=== PATIENT | male | born 1940 | race Caucasian/White ===

== ENCOUNTER 2018-01-30 10:49 | Emergency (ER) | payer OTHER ==
[~2018-01-30] VITALS: Ht 185.4 cm; Wt 81.6 kg
[2018-01-30 10:55] VITALS: BP 134/69
[2018-01-30 11:37] LABS: Basophils # (auto) 0.1 uL; Monocytes # (auto) 0.5 uL; Monocytes % (auto) 9.7 % (0.0-12.0); Red Cell Distribution Width 14.3 % (11.8-14.3)
[2018-01-30 11:39] LABS: Basophils % (auto) 1.1 % (0.0-2.0); Eosinophils # (auto) 0.1 uL; Eosinophils % (auto) 2.6 % (0.0-7.0); Lymphocytes # (auto) 1.6 uL; Lymphocytes % (auto) 28.1 % (10.0-50.0); Mean Corpuscular Hemoglobin 37.4 pg (28.0-32.0); Mean Corpuscular Hgb Conc. 34.1 g/dL (32.0-36.0); Mean Corpuscular Volume 109.5 fL (80.0-100.0); Neutrophils # (auto) 3.3 uL; Neutrophils % (auto) 58.5 % (37.0-80.0); Nucleated Red Blood Cells % 1.1 %; Platelet Count (auto) 137 10^3/uL (140-450); Red Blood Cells 3.74 10^6/uL (4.5-5.90); White Blood Cell 5.6 10^3/uL (4.4-10.8)
[2018-01-30 12:00] LABS: Alanine Aminotransferase 52 U/L (16-61); Albumin 3.4 g/dL (3.4-5.0); Alkaline Phosphatase 87 U/L (45-117); Anion Gap 11 (5-15); Aspartate Aminotransferase 103 U/L (15-37); BUN/Creatinine Ratio 10.8; Bilirubin, Total 1.1 mg/dL (0.2-1.0); Blood Urea Nitrogen 10 mg/dL (7-18); Calcium 8.7 mg/dL (8.5-10.1); Carbon Dioxide 23 mmol/L (21-32); Chloride 108 mmol/L (98-107); GFR African American 101 mL/min; GFR Non-African American 84 mL/min; Glucose 108 mg/dL (74-106); Magnesium 1.6 mg/dL (1.6-2.6); Potassium 3.5 mmol/L (3.5-5.1); Sodium 142 mmol/L (136-145); Total Protein 6.8 g/dL (6.4-8.2)
[2018-01-30 13:28] LABS: Urine WBC None Seen /hpf (0 - 3)
[2018-01-30 14:01] LABS: Urine Bacteria NONE SEEN /hpf (None Seen); Urine Blood Negative /uL (Negative); Urine Mucus FEW (None Seen); Urine Specific Gravity 1.016 (1.001-1.035)
== END 2018-01-30 13:20 | disposition left against medical advice (07) ==
LOC: ER 10:49 → EDBD 10:49 → ER 13:20
DX: R53.1 Weakness (principal); R42 Dizziness and giddiness; Z53.21 Procedure and treatment not carried out due to patient leaving prior to being seen by health care provider
CPT/HCPCS: 36415; 70450; 71046; 80053; 81001; 83735; 84484; 85025; 93005

== ENCOUNTER 2021-09-14 06:51 | Inpatient (IN) | payer OTHER ==
[~2021-09-14] VITALS: Ht 188 cm; Wt 112.2 kg
[2021-09-14] MEDS ORDERED: SODIUM CHLORIDE 0.9% 1,000 ML IV ONE (07:30)
[2021-09-14] MEDS ORDERED: SODIUM CHLORIDE 0.9% 500 ML IVB ONE (07:30)
[2021-09-14] MEDS ORDERED: LORazepam 2MG/ML-1ML VIAL IV ONE ×2 (08:15→11:45)
[2021-09-14 08:17] LABS: Eosinophils # (auto) 0 10 ^3/uL (0-0.8); Mean Corpuscular Hgb Conc. 34.6 g/dL (32.0-36.0); Neutrophils # (auto) 6.4 10 ^3/uL (1.6-8.6); Nucleated Red Blood Cells % 0.3 %; White Blood Cell 8.3 10^3/uL (4.4-10.8)
[2021-09-14 08:18] LABS: Basophils # (auto) 0.2 10 ^3/uL (0-0.2); Basophils % (auto) 1.8 % (0.0-2.0); Eosinophils % (auto) 0.4 % (0.0-7.0); Hematocrit 42.9 % (41.0-53.0); Hemoglobin 14.8 g/dL (13.5-17.5); Lymphocytes % (auto) 11.6 % (10.0-50.0); Mean Corpuscular Hemoglobin 36.6 pg (28.0-32.0); Mean Corpuscular Volume 105.9 fL (80.0-100.0); Monocytes # (auto) 0.7 10 ^3/uL (0-1.3); Monocytes % (auto) 8.2 % (0.0-12.0); Red Blood Cells 4.05 10^6/uL (4.5-5.90)
[2021-09-14 08:21] LABS: Albumin 3.7 g/dL (3.4-5.0); Calcium 9.6 mg/dL (8.5-10.1); Potassium 3.6 mmol/L (3.5-5.1)
[2021-09-14 08:28] LABS: BUN/Creatinine Ratio 14.3; Total Protein 7.5 g/dL (6.4-8.2)
[2021-09-14 11:24] LABS: Urine Bacteria NONE SEEN /hpf (None Seen); Urine Blood 3+ /uL (Negative); Urine Mucus FEW (None Seen); Urine Specific Gravity 1.032 (1.001-1.035); Urine WBC 5 /hpf (0 - 3)
[2021-09-14] MEDS: MAGNESIUM SULFATE 1GM/100ML 100 ML IV SCH ×3 (11:34→15:12)
[2021-09-14 11:37] LABS: Amphetamine Screen, Urine NEGATIVE (NEGATIVE); Barbiturate Scree,Urine NEGATIVE (NEGATIVE); Benzodiazephine Screen, Urine NEGATIVE (NEGATIVE); Cannabinoid Screen, Urine NEGATIVE (NEGATIVE); Cocaine Screen, Urine NEGATIVE (NEGATIVE); Opiate Scree,Urine NEGATIVE (NEGATIVE); Phencyclidine Screen, Urine NEGATIVE (NEGATIVE)
[2021-09-14] MEDS ORDERED: MORPHINE SULFATE 4 MG/ML SYR/VIAL IV PRN (17:00)
[2021-09-14] MEDS ORDERED: ACETAMINOPHEN 325 MG TAB PO PRN (17:00)
[2021-09-14] MEDS ORDERED: HYDROcodone-ACET 5/325MG TAB PO PRN (17:00)
[2021-09-14] MEDS ORDERED: NITROGLYCERIN 0.4 MG SL TAB SL PRN (17:15)
[2021-09-14] MEDS ORDERED: MORPHINE SULFATE INJECTION 2 MG/ML SYRG IV PRN (17:15)
[2021-09-14] MEDS: LORazepam 2MG/ML-1ML VIAL IV PRN ×3 (17:55→22:34)
[2021-09-14] MEDS: SODIUM CHLORIDE 0.9% 1,000 ML IV SCH (17:56)
[2021-09-14] MEDS ORDERED: PHENobarbital SODIUM 130 MG/ML VL IM ONE (20:15)
[2021-09-14] MEDS ORDERED: PHENobarbital SODIUM 130 MG/ML VL IV ONE (20:30)
[2021-09-14] MEDS ORDERED: FOLIC ACID 1 MG, MULTIPLE VITAMIN 10 ML, MAGNESIUM SULF SDV 50% 8 MEQ, THIAMINE INJ 100... INJ ONE ×5 (20:45)
[2021-09-14] MEDS ORDERED: MVI in SODIUM CHLORIDE 0.9% 1,010 ML ONE (20:47)
[2021-09-14] MEDS ORDERED: FOLIC ACID 1 MG, MULTIPLE VITAMIN 10 ML, MAGNESIUM SULF SDV 50% 8 MEQ, THIAMINE INJ 100... INJ STA ×5 (21:13)
[2021-09-14] MEDS ORDERED: chlordiazePOXIDE HCL 25 MG CAP PO PRN (21:15)
[2021-09-14] MEDS ORDERED: LORazepam 2MG/ML-1ML VIAL IV PRN ×2 (21:15)
[2021-09-14] MEDS: GABAPENTIN 300 MG CAP PO SCH ×2 (22:00)
[2021-09-14] MEDS: chlordiazePOXIDE HCL 25 MG CAP PO SCH (22:55)
[2021-09-14 23:00] VITALS: BP 102/69
[2021-09-15] VITALS (20 sets, daily range): BP systolic 95–145; BP diastolic 59–111
[2021-09-15] MEDS ORDERED: METOPROLOL TARTRATE 1MG/1ML-5ML VIAL IV PRN
[2021-09-15] MEDS: LORazepam 2MG/ML-1ML VIAL IV PRN ×5 (01:08→21:28)
[2021-09-15] MEDS: ENOXAPARIN SOD 100 MG/1 ML SYRINGE SC SCH ×2 (02:46→10:27)
[2021-09-15] MEDS: SODIUM CHLORIDE 0.9% 1,000 ML IV SCH (02:46)
[2021-09-15 04:48] LABS: Basophils # (auto) 0 10 ^3/uL (0-0.2); Eosinophils # (auto) 0 10 ^3/uL (0-0.8); Hemoglobin 12.9 g/dL (13.5-17.5); Monocytes # (auto) 0.6 10 ^3/uL (0-1.3); Neutrophils # (auto) 4.3 10 ^3/uL (1.6-8.6); Nucleated Red Blood Cells % 0.5 %
[2021-09-15 04:54] LABS: Basophils % (auto) 0.8 % (0.0-2.0); Eosinophils % (auto) 0.4 % (0.0-7.0); Hematocrit 37.8 % (41.0-53.0); Lymphocytes # (auto) 0.9 10 ^3/uL (0.4-5.4); Lymphocytes % (auto) 15.2 % (10.0-50.0); Mean Corpuscular Hgb Conc. 34.2 g/dL (32.0-36.0); Mean Corpuscular Volume 108.3 fL (80.0-100.0); Monocytes % (auto) 10.2 % (0.0-12.0); Neutrophils % (auto) 73.4 % (37.0-80.0); Red Blood Cells 3.49 10^6/uL (4.5-5.90); Red Cell Distribution Width 13.8 % (11.8-14.3); White Blood Cell 5.8 10^3/uL (4.4-10.8)
[2021-09-15 05:06] LABS: Albumin 3.1 g/dL (3.4-5.0); Calcium 8.9 mg/dL (8.5-10.1); Potassium 3.8 mmol/L (3.5-5.1)
[2021-09-15 05:11] LABS: BUN/Creatinine Ratio 15.3; Bilirubin, Total 2.9 mg/dL (0.2-1.0); Total Protein 6.3 g/dL (6.4-8.2)
[2021-09-15] MEDS: chlordiazePOXIDE HCL 25 MG CAP PO SCH ×3 (05:39→18:27)
[2021-09-15] MEDS: GABAPENTIN 300 MG CAP PO SCH ×4 (05:40→21:27)
[2021-09-15] MEDS ORDERED: ENOXAPARIN SOD 30 MG/0.3 ML SYRINGE SC SCH (10:00)
[2021-09-15] MEDS ORDERED: DIGOXIN (250MCG/ML) 2 ML AMPULE IV ONE (10:30)
[2021-09-15] MEDS: METOPROLOL TARTRATE 25 MG TAB PO SCH ×2 (10:30→21:27)
[2021-09-15] MEDS: AMIODARONE HCL 200 MG TAB PO SCH ×2 (11:26→21:26)
[2021-09-15 12:00] LABS: Magnesium 1.9 mg/dL (1.6-2.6)
[2021-09-15] MEDS: FOLIC ACID 1 MG, MULTIPLE VITAMIN 10 ML, MAGNESIUM SULF SDV 50% 8 MEQ, THIAMINE INJ 100... INJ SCH ×5 (13:12)
[2021-09-15 15:49] LABS: BUN/Creatinine Ratio 15.2; Potassium 3.5 mmol/L (3.5-5.1)
[2021-09-15] MEDS: SOD CHL 0.45% 1,000 ML IV SCH (17:06)
[2021-09-16] VITALS (31 sets, daily range): BP systolic 93–155; BP diastolic 47–83
[2021-09-16] MEDS: chlordiazePOXIDE HCL 25 MG CAP PO SCH ×4 (00:47→17:37)
[2021-09-16] MEDS: SOD CHL 0.45% 1,000 ML IV SCH ×3 (03:08→20:45)
[2021-09-16 04:07] LABS: BUN/Creatinine Ratio 17.9; Calcium 8.3 mg/dL (8.5-10.1); Potassium 3.3 mmol/L (3.5-5.1)
[2021-09-16] MEDS: GABAPENTIN 300 MG CAP PO SCH ×3 (06:00→21:30)
[2021-09-16] MEDS: ENOXAPARIN SOD 100 MG/1 ML SYRINGE SC SCH (09:42)
[2021-09-16] MEDS: METOPROLOL TARTRATE 25 MG TAB PO SCH ×2 (09:42→21:33)
[2021-09-16] MEDS: AMIODARONE HCL 200 MG TAB PO SCH ×2 (09:42→21:32)
[2021-09-16] MEDS ORDERED: POTASSIUM CHL 20MEQ/100ML 100 ML IV SCH (10:45)
[2021-09-16] MEDS ORDERED: POTASSIUM CHL 20 Meq TABLET PO ONE (11:15)
[2021-09-16] MEDS ORDERED: POTASSIUM EFFERVESENT TAB 25 MEQ GT ONE (11:30)
[2021-09-16] MEDS: FOLIC ACID 1 MG, MULTIPLE VITAMIN 10 ML, MAGNESIUM SULF SDV 50% 8 MEQ, THIAMINE INJ 100... INJ SCH ×5 (12:24)
[2021-09-17] VITALS (21 sets, daily range): BP systolic 99–156; BP diastolic 48–98
[2021-09-17 04:20] LABS: Basophils # (auto) 0 10 ^3/uL (0-0.2); Basophils % (auto) 0.6 % (0.0-2.0); Eosinophils # (auto) 0.1 10 ^3/uL (0-0.8); Eosinophils % (auto) 1.6 % (0.0-7.0); Hematocrit 34.3 % (41.0-53.0); Hemoglobin 11.7 g/dL (13.5-17.5); Lymphocytes # (auto) 0.9 10 ^3/uL (0.4-5.4); Lymphocytes % (auto) 17.5 % (10.0-50.0); Mean Corpuscular Hemoglobin 36.3 pg (28.0-32.0); Mean Corpuscular Volume 106.6 fL (80.0-100.0); Monocytes # (auto) 0.5 10 ^3/uL (0-1.3); Monocytes % (auto) 9.4 % (0.0-12.0); Neutrophils # (auto) 3.5 10 ^3/uL (1.6-8.6); Neutrophils % (auto) 70.9 % (37.0-80.0); Red Blood Cells 3.22 10^6/uL (4.5-5.90); Red Cell Distribution Width 13.7 % (11.8-14.3); White Blood Cell 4.9 10^3/uL (4.4-10.8)
[2021-09-17 04:33] LABS: Albumin 2.6 g/dL (3.4-5.0); BUN/Creatinine Ratio 17.1; Calcium 7.8 mg/dL (8.5-10.1); Potassium 3.4 mmol/L (3.5-5.1)
[2021-09-17 04:36] LABS: Bilirubin, Total 1.8 mg/dL (0.2-1.0); Total Protein 5.6 g/dL (6.4-8.2)
[2021-09-17] MEDS: GABAPENTIN 300 MG CAP PO SCH ×3 (06:00→21:33)
[2021-09-17] MEDS: chlordiazePOXIDE HCL 25 MG CAP PO SCH ×4 (06:00→17:35)
[2021-09-17] MEDS: SOD CHL 0.45% 1,000 ML IV SCH ×2 (06:45→14:30)
[2021-09-17] MEDS ORDERED: BUMETANIDE 2.5mg/10ml (0.25 mg/ml) INJ IV ONE (06:45)
[2021-09-17] MEDS: AMIODARONE HCL 200 MG TAB PO SCH ×2 (09:00→21:32)
[2021-09-17] MEDS: METOPROLOL TARTRATE 25 MG TAB PO SCH ×2 (09:00→21:33)
[2021-09-17] MEDS: ENOXAPARIN SOD 100 MG/1 ML SYRINGE SC SCH (09:00)
[2021-09-17] MEDS ORDERED: POTASSIUM EFFERVESENT TAB 25 MEQ GT ONE (10:00)
[2021-09-17] MEDS ORDERED: DOCUSATE SOD 100 MG CAP PO PRN (10:00)
[2021-09-17] MEDS ORDERED: LACTULOSE 20Gm/30ML SOLN PO PRN (10:00)
[2021-09-17] MEDS: FOLIC ACID 1 MG, MULTIPLE VITAMIN 10 ML, MAGNESIUM SULF SDV 50% 8 MEQ, THIAMINE INJ 100... INJ SCH ×5 (12:26)
[2021-09-18] VITALS (11 sets, daily range): BP systolic 99–155; BP diastolic 56–81
[2021-09-18] MEDS: chlordiazePOXIDE HCL 25 MG CAP PO SCH ×4 (01:14→17:35)
[2021-09-18] MEDS: SOD CHL 0.45% 1,000 ML IV SCH ×2 (01:15→10:36)
[2021-09-18] MEDS: GABAPENTIN 300 MG CAP PO SCH ×3 (06:43→22:17)
[2021-09-18] MEDS: AMIODARONE HCL 200 MG TAB PO SCH ×2 (09:47→22:15)
[2021-09-18] MEDS: ENOXAPARIN SOD 100 MG/1 ML SYRINGE SC SCH (09:47)
[2021-09-18] MEDS: METOPROLOL TARTRATE 25 MG TAB PO SCH ×2 (09:58→22:16)
[2021-09-18 11:18] LABS: Calcium 7.8 mg/dL (8.5-10.1); Potassium 3.5 mmol/L (3.5-5.1)
[2021-09-18 11:20] LABS: BUN/Creatinine Ratio 16.4; Basophils # (auto) 0 10 ^3/uL (0-0.2); Basophils % (auto) 0.4 % (0.0-2.0); Eosinophils # (auto) 0.1 10 ^3/uL (0-0.8); Eosinophils % (auto) 1.3 % (0.0-7.0); Hematocrit 32.6 % (41.0-53.0); Hemoglobin 11.4 g/dL (13.5-17.5); Lymphocytes # (auto) 0.7 10 ^3/uL (0.4-5.4); Lymphocytes % (auto) 13.3 % (10.0-50.0); Mean Corpuscular Hemoglobin 37.4 pg (28.0-32.0); Monocytes # (auto) 0.8 10 ^3/uL (0-1.3); Monocytes % (auto) 13.7 % (0.0-12.0); Neutrophils # (auto) 3.9 10 ^3/uL (1.6-8.6); Neutrophils % (auto) 71.3 % (37.0-80.0); Nucleated Red Blood Cells % 0.5 %; Red Blood Cells 3.05 10^6/uL (4.5-5.90); Red Cell Distribution Width 13.9 % (11.8-14.3); White Blood Cell 5.5 10^3/uL (4.4-10.8)
[2021-09-18 11:22] LABS: Mean Corpuscular Volume 107.1 fL (80.0-100.0)
[2021-09-18] MEDS: FOLIC ACID 1 MG, MULTIPLE VITAMIN 10 ML, MAGNESIUM SULF SDV 50% 8 MEQ, THIAMINE INJ 100... INJ SCH ×5 (11:38)
[2021-09-18] MEDS: LORazepam 2MG/ML-1ML VIAL IV PRN (14:34)
[2021-09-19] MEDS: chlordiazePOXIDE HCL 25 MG CAP PO SCH ×3 (00:40→13:12)
[2021-09-19] MEDS: LORazepam 2MG/ML-1ML VIAL IV PRN ×2 (01:12→21:39)
[2021-09-19 05:00] VITALS: BP 111/65
[2021-09-19] MEDS: GABAPENTIN 300 MG CAP PO SCH ×3 (06:30→22:00)
[2021-09-19 06:40] LABS: Basophils # (auto) 0 10 ^3/uL (0-0.2); Eosinophils # (auto) 0.1 10 ^3/uL (0-0.8); Eosinophils % (auto) 1.1 % (0.0-7.0); Hemoglobin 11.4 g/dL (13.5-17.5); Lymphocytes # (auto) 0.8 10 ^3/uL (0.4-5.4); Monocytes # (auto) 0.9 10 ^3/uL (0-1.3); Red Cell Distribution Width 13.8 % (11.8-14.3)
[2021-09-19 06:44] LABS: Basophils % (auto) 0.6 % (0.0-2.0); Hematocrit 33.3 % (41.0-53.0); Lymphocytes % (auto) 14.5 % (10.0-50.0); Mean Corpuscular Hemoglobin 36.8 pg (28.0-32.0); Mean Corpuscular Hgb Conc. 34.1 g/dL (32.0-36.0); Monocytes % (auto) 15.6 % (0.0-12.0); Neutrophils # (auto) 3.8 10 ^3/uL (1.6-8.6); Neutrophils % (auto) 68.2 % (37.0-80.0); Nucleated Red Blood Cells % 0.6 %; Red Blood Cells 3.08 10^6/uL (4.5-5.90); White Blood Cell 5.6 10^3/uL (4.4-10.8)
[2021-09-19 07:04] LABS: Potassium 3.7 mmol/L (3.5-5.1)
[2021-09-19 07:14] LABS: BUN/Creatinine Ratio 15.8; Calcium 8.1 mg/dL (8.5-10.1); Magnesium 1.9 mg/dL (1.6-2.6)
[2021-09-19 08:00] VITALS: BP 116/64
[2021-09-19 09:00] VITALS: BP 116/64
[2021-09-19] MEDS ORDERED: ENOXAPARIN SOD 100 MG/1 ML SYRINGE SC ONE (10:30)
[2021-09-19] MEDS: AMIODARONE HCL 200 MG TAB PO SCH ×2 (10:35→22:00)
[2021-09-19] MEDS: METOPROLOL TARTRATE 25 MG TAB PO SCH ×2 (10:35→22:00)
[2021-09-19 13:00] VITALS: BP 126/60
[2021-09-19] MEDS: FOLIC ACID 1 MG, MULTIPLE VITAMIN 10 ML, MAGNESIUM SULF SDV 50% 8 MEQ, THIAMINE INJ 100... INJ SCH ×5 (13:12)
[2021-09-19 17:00] VITALS: BP 139/80
[2021-09-19 22:00] VITALS: BP 132/62
[2021-09-20] MEDS: GABAPENTIN 300 MG CAP PO SCH ×3 (05:34→22:00)
[2021-09-20 08:00] VITALS: BP 138/77
[2021-09-20] MEDS: AMIODARONE HCL 200 MG TAB PO SCH ×2 (10:00→22:00)
[2021-09-20] MEDS: METOPROLOL TARTRATE 25 MG TAB PO SCH (10:00)
[2021-09-20 12:00] VITALS: BP 138/70
[2021-09-20] MEDS: FOLIC ACID 1 MG, MULTIPLE VITAMIN 10 ML, MAGNESIUM SULF SDV 50% 8 MEQ, THIAMINE INJ 100... INJ SCH ×5 (12:31)
[2021-09-20] MEDS: ENOXAPARIN SOD 100 MG/1 ML SYRINGE SC SCH (12:34)
[2021-09-20] MEDS: METOPROLOL TARTRATE 1MG/1ML-5ML VIAL IV SCH ×2 (14:04→22:00)
[2021-09-20 16:00] VITALS: BP 131/80
[2021-09-20] MEDS ORDERED: PPN PER PHARMACY 0 ML IV SCH (18:30)
[2021-09-20 20:26] LABS: Albumin 2.6 g/dL (3.4-5.0); BUN/Creatinine Ratio 20.4; Calcium 7.8 mg/dL (8.5-10.1); Magnesium 2.4 mg/dL (1.6-2.6); Potassium 3.5 mmol/L (3.5-5.1)
[2021-09-20 20:29] LABS: Bilirubin, Total 1.4 mg/dL (0.2-1.0); Phosphorus 2.1 mg/dL (2.5-4.90)
[2021-09-20 22:00] VITALS: BP 159/77
[2021-09-20] MEDS: AMINO ACID INFUSION IN D10W 1,000 ML IV NR (22:18)
[2021-09-21] MEDS: LORazepam 2MG/ML-1ML VIAL IV PRN (01:02)
[2021-09-21 05:00] VITALS: BP 144/79
[2021-09-21 05:56] LABS: Basophils # (auto) 0 10 ^3/uL (0-0.2); Eosinophils # (auto) 0.1 10 ^3/uL (0-0.8); Eosinophils % (auto) 1.4 % (0.0-7.0); Lymphocytes # (auto) 0.7 10 ^3/uL (0.4-5.4); Monocytes # (auto) 0.7 10 ^3/uL (0-1.3); Neutrophils # (auto) 3.3 10 ^3/uL (1.6-8.6); White Blood Cell 4.8 10^3/uL (4.4-10.8)
[2021-09-21 06:00] LABS: Basophils % (auto) 0.6 % (0.0-2.0); Hematocrit 33.3 % (41.0-53.0); Hemoglobin 11.7 g/dL (13.5-17.5); Lymphocytes % (auto) 13.7 % (10.0-50.0); Mean Corpuscular Hemoglobin 37.1 pg (28.0-32.0); Monocytes % (auto) 14.5 % (0.0-12.0); Neutrophils % (auto) 69.8 % (37.0-80.0); Nucleated Red Blood Cells % 0.3 %; Red Blood Cells 3.15 10^6/uL (4.5-5.90); Red Cell Distribution Width 14.1 % (11.8-14.3)
[2021-09-21] MEDS: GABAPENTIN 300 MG CAP PO SCH ×3 (06:00→21:53)
[2021-09-21] MEDS: InsuLIN REG 1unit/0.01ml Soln (100units/ml) SC SCH ×5 (06:00→23:48)
[2021-09-21] MEDS: METOPROLOL TARTRATE 1MG/1ML-5ML VIAL IV SCH ×3 (06:01→22:04)
[2021-09-21] MEDS: ACCU-CHEK COMFORT CURVE STRIP VI SCH ×5 (06:01→23:48)
[2021-09-21 06:08] LABS: Albumin 2.6 g/dL (3.4-5.0); Calcium 7.8 mg/dL (8.5-10.1); Magnesium 2.1 mg/dL (1.6-2.6); Potassium 3.3 mmol/L (3.5-5.1)
[2021-09-21 06:12] LABS: BUN/Creatinine Ratio 21.7; Bilirubin, Total 1.3 mg/dL (0.2-1.0); Phosphorus 1.2 mg/dL (2.5-4.90); Total Protein 6.1 g/dL (6.4-8.2)
[2021-09-21] MEDS: AMIODARONE HCL 200 MG TAB PO SCH ×2 (09:21→21:53)
[2021-09-21] MEDS: DIGOXIN (250MCG/ML) 2 ML AMPULE IV SCH (10:56)
[2021-09-21] MEDS: ENOXAPARIN SOD 100 MG/1 ML SYRINGE SC SCH ×2 (10:58→22:04)
[2021-09-21] MEDS ORDERED: POTASSIUM PHOSPHATE 44 MEQ in D5W 5% 250 ML IV ONE (11:00)
[2021-09-21] MEDS ORDERED: DEXTROSE (50%) 50ML SYRG IV SCH ×2 (12:00)
[2021-09-21] MEDS ORDERED: InsuLIN REG 1unit/0.01ml Soln (100units/ml) SC SCH (12:00)
[2021-09-21] MEDS ORDERED: ACCU-CHEK COMFORT CURVE STRIP VI SCH (12:00)
[2021-09-21] MEDS: FOLIC ACID 1 MG, MULTIPLE VITAMIN 10 ML, MAGNESIUM SULF SDV 50% 8 MEQ, THIAMINE INJ 100... INJ SCH ×5 (15:21)
[2021-09-21 16:53] VITALS: BP 152/91
[2021-09-21] MEDS: AMINO ACID INFUSION IN D10W 1,000 ML IV NR (19:49)
[2021-09-21] MEDS ORDERED: PPN PER PHARMACY IV NR ×6 (20:00)
[2021-09-21 22:00] VITALS: BP 145/72
[2021-09-22 05:00] VITALS: BP 138/76
[2021-09-22] MEDS: ACCU-CHEK COMFORT CURVE STRIP VI SCH ×4 (05:00→23:14)
[2021-09-22] MEDS: InsuLIN REG 1unit/0.01ml Soln (100units/ml) SC SCH ×4 (05:00→23:15)
[2021-09-22] MEDS: GABAPENTIN 300 MG CAP PO SCH ×2 (05:01→14:00)
[2021-09-22] MEDS: METOPROLOL TARTRATE 1MG/1ML-5ML VIAL IV SCH ×3 (05:15→22:33)
[2021-09-22 08:08] LABS: Basophils # (auto) 0 10 ^3/uL (0-0.2); Eosinophils # (auto) 0.1 10 ^3/uL (0-0.8); Neutrophils # (auto) 3.6 10 ^3/uL (1.6-8.6)
[2021-09-22 08:10] LABS: Basophils % (auto) 0.9 % (0.0-2.0); Eosinophils % (auto) 1.4 % (0.0-7.0); Hemoglobin 11.5 g/dL (13.5-17.5); Lymphocytes # (auto) 0.8 10 ^3/uL (0.4-5.4); Lymphocytes % (auto) 14.2 % (10.0-50.0); Mean Corpuscular Hemoglobin 36.8 pg (28.0-32.0); Mean Corpuscular Hgb Conc. 34.7 g/dL (32.0-36.0); Monocytes # (auto) 0.9 10 ^3/uL (0-1.3); Monocytes % (auto) 16.7 % (0.0-12.0); Neutrophils % (auto) 66.8 % (37.0-80.0); Nucleated Red Blood Cells % 0.6 %; Red Blood Cells 3.11 10^6/uL (4.5-5.90); Red Cell Distribution Width 13.7 % (11.8-14.3); White Blood Cell 5.3 10^3/uL (4.4-10.8)
[2021-09-22 08:28] LABS: Potassium 3.2 mmol/L (3.5-5.1)
[2021-09-22 08:33] LABS: Albumin 2.4 g/dL (3.4-5.0); BUN/Creatinine Ratio 24.3; Calcium 7.6 mg/dL (8.5-10.1); Magnesium 2.5 mg/dL (1.6-2.6); Phosphorus 1.7 mg/dL (2.5-4.90)
[2021-09-22 09:00] VITALS: BP 127/58
[2021-09-22] MEDS: AMIODARONE HCL 200 MG TAB PO SCH ×2 (10:00→22:00)
[2021-09-22] MEDS: DIGOXIN (250MCG/ML) 2 ML AMPULE IV SCH (10:55)
[2021-09-22] MEDS: ENOXAPARIN SOD 100 MG/1 ML SYRINGE SC SCH (10:55)
[2021-09-22] MEDS ORDERED: POTASSIUM PHOSPHATE 44 MEQ in D5W 5% 250 ML IV ONE ×2 (11:15→16:00)
[2021-09-22] MEDS ORDERED: CALCIUM GLUC 1,000mg/50ml-NS 50 ML IV ONE (11:45)
[2021-09-22] MEDS: FOLIC ACID 1 MG, MULTIPLE VITAMIN 10 ML, MAGNESIUM SULF SDV 50% 8 MEQ, THIAMINE INJ 100... INJ SCH ×5 (12:05)
[2021-09-22 13:00] VITALS: BP 142/64
[2021-09-22] MEDS ORDERED: LORazepam 2MG/ML-1ML VIAL IV PRN (16:00)
[2021-09-22] MEDS ORDERED: HALOPERIDOL LACTATE 5 MG/ML INJ VIAL IM PRN (16:30)
[2021-09-22 17:00] VITALS: BP 119/56
[2021-09-22] MEDS ORDERED: PPN PER PHARMACY IV NR ×6 (20:00)
[2021-09-22 22:00] VITALS: BP 135/60
[2021-09-22] MEDS ORDERED: MIRTAZAPINE 30 MG TAB PO PRN (22:00)
[2021-09-22] MEDS: GABAPENTIN 400 MG CAP PO SCH (22:00)
[2021-09-22] MEDS: ENOXAPARIN SOD 80 MG/0.8ML SYRINGE SC SCH (22:34)
[2021-09-23 05:00] VITALS: BP 141/70
[2021-09-23] MEDS: METOPROLOL TARTRATE 1MG/1ML-5ML VIAL IV SCH (05:14)
[2021-09-23] MEDS: ACCU-CHEK COMFORT CURVE STRIP VI SCH ×3 (05:14→17:59)
[2021-09-23] MEDS: GABAPENTIN 400 MG CAP PO SCH ×3 (05:14→22:00)
[2021-09-23] MEDS: InsuLIN REG 1unit/0.01ml Soln (100units/ml) SC SCH ×3 (05:14→17:59)
[2021-09-23 05:59] LABS: Basophils # (auto) 0.1 10 ^3/uL (0-0.2); Eosinophils # (auto) 0.1 10 ^3/uL (0-0.8); Monocytes # (auto) 0.8 10 ^3/uL (0-1.3)
[2021-09-23 06:01] LABS: Basophils % (auto) 1.2 % (0.0-2.0); Hematocrit 31.3 % (41.0-53.0); Lymphocytes # (auto) 0.9 10 ^3/uL (0.4-5.4); Lymphocytes % (auto) 13.9 % (10.0-50.0); Mean Corpuscular Hemoglobin 36.9 pg (28.0-32.0); Mean Corpuscular Hgb Conc. 35.1 g/dL (32.0-36.0); Mean Corpuscular Volume 105.3 fL (80.0-100.0); Neutrophils # (auto) 4.4 10 ^3/uL (1.6-8.6); Neutrophils % (auto) 70.9 % (37.0-80.0); Nucleated Red Blood Cells % 0.1 %; Red Blood Cells 2.97 10^6/uL (4.5-5.90); White Blood Cell 6.2 10^3/uL (4.4-10.8)
[2021-09-23 06:34] LABS: Albumin 2.3 g/dL (3.4-5.0); BUN/Creatinine Ratio 21.7; Calcium 7.4 mg/dL (8.5-10.1); Magnesium 2.3 mg/dL (1.6-2.6); Potassium 3.4 mmol/L (3.5-5.1)
[2021-09-23 06:36] LABS: Phosphorus 2.4 mg/dL (2.5-4.90); Total Protein 5.7 g/dL (6.4-8.2)
[2021-09-23 09:00] VITALS: BP 137/51
[2021-09-23] MEDS ORDERED: LORazepam 2MG/ML-1ML VIAL IV PRN (09:45)
[2021-09-23] MEDS: AMIODARONE HCL 200 MG TAB PO SCH ×2 (10:00→22:00)
[2021-09-23] MEDS: DIGOXIN (250MCG/ML) 2 ML AMPULE IV SCH (10:01)
[2021-09-23] MEDS: ENOXAPARIN SOD 80 MG/0.8ML SYRINGE SC SCH (10:01)
[2021-09-23] MEDS: FOLIC ACID 1 MG, MULTIPLE VITAMIN 10 ML, MAGNESIUM SULF SDV 50% 8 MEQ, THIAMINE INJ 100... INJ SCH ×5 (12:38)
[2021-09-23 13:00] VITALS: BP 125/69
[2021-09-23] MEDS ORDERED: CALCIUM GLUC 1,000mg/50ml-NS 50 ML IV ONE (14:00)
[2021-09-23 17:00] VITALS: BP 126/69
[2021-09-23] MEDS ORDERED: POTASSIUM PHOSPHATE 22 MEQ in SODIUM CHL 0.9% 100 ML IV ONE (17:00)
[2021-09-23] MEDS ORDERED: PPN PER PHARMACY IV NR ×6 (20:00)
[2021-09-23] MEDS: APIXABAN 2.5 MG TAB PO SCH (22:00)
[2021-09-23 22:08] VITALS: BP 139/78
[2021-09-23] MEDS: HALOPERIDOL 1 MG TAB PO SCH (23:30)
[2021-09-24] MEDS: ACCU-CHEK COMFORT CURVE STRIP VI SCH ×4 (00:02→18:00)
[2021-09-24 04:58] VITALS: BP 152/62
[2021-09-24] MEDS: InsuLIN REG 1unit/0.01ml Soln (100units/ml) SC SCH ×4 (05:57→18:00)
[2021-09-24] MEDS: HALOPERIDOL 1 MG TAB PO SCH ×3 (05:57→22:00)
[2021-09-24] MEDS: GABAPENTIN 400 MG CAP PO SCH ×3 (05:57→22:00)
[2021-09-24 06:35] LABS: Albumin 2.6 g/dL (3.4-5.0); BUN/Creatinine Ratio 22.2; Bilirubin, Total 1.2 mg/dL (0.2-1.0); Calcium 8.4 mg/dL (8.5-10.1); Magnesium 2.2 mg/dL (1.6-2.6); Phosphorus 2.5 mg/dL (2.5-4.90); Potassium 3.8 mmol/L (3.5-5.1); Total Protein 6.3 g/dL (6.4-8.2)
[2021-09-24 08:00] VITALS: BP 100/55
[2021-09-24 08:59] VITALS: BP 100/55
[2021-09-24] MEDS: APIXABAN 2.5 MG TAB PO SCH ×2 (10:04→22:00)
[2021-09-24] MEDS: AMIODARONE HCL 200 MG TAB PO SCH ×2 (10:04→22:00)
[2021-09-24] MEDS: FOLIC ACID 1 MG, MULTIPLE VITAMIN 10 ML, MAGNESIUM SULF SDV 50% 8 MEQ, THIAMINE INJ 100... INJ SCH ×5 (12:00)
[2021-09-24 13:00] VITALS: BP 139/81
[2021-09-24] MEDS: ONDANSETRON HCL 4 MG/2 ML VIAL IV PRN ×3 (15:41→16:23)
[2021-09-24] MEDS: PANTOPRAZOLE 40 MG/10 ML VIAL INJ IV SCH (16:23)
[2021-09-24 17:00] VITALS: BP 154/69
[2021-09-24] MEDS ORDERED: PPN PER PHARMACY IV NR ×6 (20:00)
[2021-09-24] MEDS ORDERED: POTASSIUM PHOSPHATE IV NR ×6 (20:00)
[2021-09-24] MEDS ORDERED: FAT EMULSION IV NR ×6 (20:00)
[2021-09-24] MEDS ORDERED: POTASSIUM ACETATE IV NR ×6 (20:00)
[2021-09-24] MEDS ORDERED: [UNRECOGNIZED DRUG - OTHER] IV NR ×6 (20:00)
[2021-09-24 22:00] VITALS: BP 145/64
[2021-09-25 05:00] VITALS: BP 119/61
[2021-09-25] MEDS: GABAPENTIN 400 MG CAP PO SCH (06:00)
[2021-09-25] MEDS: HALOPERIDOL 1 MG TAB PO SCH ×2 (06:00→21:57)
[2021-09-25 09:00] VITALS: BP 129/60
[2021-09-25] MEDS ORDERED: PANTOPRAZOLE 40 MG/10 ML VIAL INJ IV SCH (10:00)
[2021-09-25 10:01] LABS: Eosinophils # (auto) 0 10 ^3/uL (0-0.8)
[2021-09-25 10:03] LABS: Basophils # (auto) 0 10 ^3/uL (0-0.2); Basophils % (auto) 0.3 % (0.0-2.0); Eosinophils % (auto) 0.1 % (0.0-7.0); Hematocrit 32.4 % (41.0-53.0); Hemoglobin 11.1 g/dL (13.5-17.5); Lymphocytes # (auto) 0.9 10 ^3/uL (0.4-5.4); Lymphocytes % (auto) 11.2 % (10.0-50.0); Mean Corpuscular Hemoglobin 36.4 pg (28.0-32.0); Mean Corpuscular Hgb Conc. 34.2 g/dL (32.0-36.0); Mean Corpuscular Volume 106.4 fL (80.0-100.0); Monocytes # (auto) 0.8 10 ^3/uL (0-1.3); Monocytes % (auto) 9.3 % (0.0-12.0); Neutrophils # (auto) 6.6 10 ^3/uL (1.6-8.6); Neutrophils % (auto) 79.1 % (37.0-80.0); Nucleated Red Blood Cells % 0.4 %; Red Blood Cells 3.05 10^6/uL (4.5-5.90); Red Cell Distribution Width 13.8 % (11.8-14.3); White Blood Cell 8.3 10^3/uL (4.4-10.8)
[2021-09-25] MEDS: PANTOPRAZOLE 40 MG/10 ML VIAL INJ IV SCH (10:16)
[2021-09-25] MEDS: AMIODARONE HCL 200 MG TAB PO SCH ×2 (10:19→21:57)
[2021-09-25] MEDS: APIXABAN 2.5 MG TAB PO SCH ×2 (10:19→21:57)
[2021-09-25 10:26] LABS: Albumin 2.3 g/dL (3.4-5.0); Calcium 8.1 mg/dL (8.5-10.1); Magnesium 2.3 mg/dL (1.6-2.6); Potassium 4.1 mmol/L (3.5-5.1)
[2021-09-25] MEDS: GABAPENTIN 100 MG CAP PO SCH ×2 (10:26→16:32)
[2021-09-25 10:33] LABS: Bilirubin, Total 1.4 mg/dL (0.2-1.0); Total Protein 6.1 g/dL (6.4-8.2)
[2021-09-25] MEDS: FOLIC ACID 1 MG, MULTIPLE VITAMIN 10 ML, MAGNESIUM SULF SDV 50% 8 MEQ, THIAMINE INJ 100... INJ SCH ×5 (12:21)
[2021-09-25] MEDS: D5W/SOD CHL 0.45% 1,000 ML IV SCH (15:50)
[2021-09-25] MEDS: DOXYCYCLINE 100MG/250ML 250 ML IV SCH (15:51)
[2021-09-25 16:27] VITALS: BP_SYST 143; BP_SYST 171; BP_DIAS 74; BP_DIAS 76
[2021-09-25 22:00] VITALS: BP 139/71
[2021-09-25] MEDS ORDERED: HALOPERIDOL LACTATE 5 MG/ML INJ VIAL IM PRN (22:00)
[2021-09-26] MEDS: DOXYCYCLINE 100MG/250ML 250 ML IV SCH (01:05)
[2021-09-26] MEDS: GABAPENTIN 100 MG CAP PO SCH ×3 (02:00→10:00)
[2021-09-26 04:40] VITALS: BP 139/71
[2021-09-26 05:00] VITALS: BP 128/69
[2021-09-26] MEDS: D5W/SOD CHL 0.45% 1,000 ML IV SCH (05:38)
[2021-09-26 08:57] VITALS: BP 129/66
[2021-09-26] MEDS: AMIODARONE HCL 200 MG TAB PO SCH (10:00)
[2021-09-26] MEDS: APIXABAN 2.5 MG TAB PO SCH (10:00)
[2021-09-26] MEDS: PANTOPRAZOLE 40 MG/10 ML VIAL INJ IV SCH ×2 (10:00→11:44)
[2021-09-26] MEDS: HALOPERIDOL 1 MG TAB PO SCH (10:00)
[2021-09-26 13:00] VITALS: BP 138/75
[2021-09-26 17:00] VITALS: BP 130/64
[2021-09-26 22:00] VITALS: BP 126/69
[2021-09-27 05:00] VITALS: BP 144/63
[2021-09-27 09:00] VITALS: BP 127/55
[2021-09-27] MEDS: ALBUTEROL SULF 2.5 MG/0.5ML(0.5%) NEB SOLN NEB SCH ×4 (10:02→21:29)
[2021-09-27] MEDS: IPRATROPIUM BROM 0.5 MG/2.5ML INH SOL NEB SCH ×4 (10:02→21:29)
[2021-09-27] MEDS: MORPHINE SULFATE INJECTION 2 MG/ML SYRG IV PRN (11:10)
[2021-09-27 13:00] VITALS: BP 122/52
[2021-09-27] MEDS: ACETYLCYSTEINE 20%(200MG/ML) SOL 4ML NEB SCH ×2 (13:43→21:29)
[2021-09-27] MEDS ORDERED: GLYCOPYRROLATE 0.2 MG/ML 1ML VIAL IV SCH (14:00)
[2021-09-27] MEDS: GLYCOPYRROLATE 0.2 MG/ML 1ML VIAL IV SCH ×2 (14:00→22:12)
[2021-09-27] MEDS: LORazepam 2MG/ML-1ML VIAL IV PRN ×2 (15:04→19:02)
[2021-09-27 17:00] VITALS: BP 129/57
[2021-09-27 22:00] VITALS: BP 126/55
[2021-09-28] MEDS: IPRATROPIUM BROM 0.5 MG/2.5ML INH SOL NEB SCH ×5 (01:40→18:05)
[2021-09-28] MEDS: ALBUTEROL SULF 2.5 MG/0.5ML(0.5%) NEB SOLN NEB SCH ×5 (01:40→18:05)
[2021-09-28] MEDS: MORPHINE SULFATE INJECTION 2 MG/ML SYRG IV PRN ×2 (01:49→20:13)
[2021-09-28 05:00] VITALS: BP 125/57
[2021-09-28] MEDS: ACETYLCYSTEINE 20%(200MG/ML) SOL 4ML NEB SCH ×2 (05:47→14:04)
[2021-09-28] MEDS: GLYCOPYRROLATE 0.2 MG/ML 1ML VIAL IV SCH ×2 (06:24→14:06)
[2021-09-28 08:58] VITALS: BP 150/64
[2021-09-28 13:00] VITALS: BP 131/62
[2021-09-28 17:00] VITALS: BP 126/69
[2021-09-28 17:27] VITALS: BP 129/67
[2021-09-28 20:13] VITALS: BP 146/70
== END 2021-09-28 20:28 | disposition hospice, home (50) | DRG 682 ==
LOC: EDUNIT# 06:51 → EDBD 06:51 → ER 06:51 → TELE 17:01 → ICU WEST 23:06 → CENTRAL 09-18 16:15 → TELE-CENTR 09-18 19:35
PROVIDERS: ADMIT Internal Medicine; ATTEND Internal Medicine
DX: N17.0 Acute kidney failure with tubular necrosis (principal); J96.01 Acute respiratory failure with hypoxia; G92.8 Other toxic encephalopathy; F10.231 Alcohol dependence with withdrawal delirium; J98.11 Atelectasis; E87.0 Hyperosmolality and hypernatremia; E87.2 Acidosis; E87.1 Hypo-osmolality and hyponatremia; I48.20 Chronic atrial fibrillation, unspecified; Z66 Do not resuscitate; K29.20 Alcoholic gastritis without bleeding; E83.42 Hypomagnesemia; I48.0 Paroxysmal atrial fibrillation; D75.89 Other specified diseases of blood and blood-forming organs; E87.6 Hypokalemia; R44.1 Visual hallucinations; F41.9 Anxiety disorder, unspecified; E66.9 Obesity, unspecified; D69.6 Thrombocytopenia, unspecified; N18.9 Chronic kidney disease, unspecified; E03.9 Hypothyroidism, unspecified; E78.5 Hyperlipidemia, unspecified; F03.90 Unspecified dementia, unspecified severity, without behavioral disturbance, psychotic disturbance, mood disturbance, and anxiety; I12.9 Hypertensive chronic kidney disease with stage 1 through stage 4 chronic kidney disease, or unspecified chronic kidney disease; R56.9 Unspecified convulsions; Z20.822 Contact with and (suspected) exposure to COVID-19; R74.8 Abnormal levels of other serum enzymes; R79.89 Other specified abnormal findings of blood chemistry; Z79.899 Other long term (current) drug therapy; Z91.81 History of falling; Z82.0 Family history of epilepsy and other diseases of the nervous system; Z85.46 Personal history of malignant neoplasm of prostate; Z51.5 Encounter for palliative care; Z68.29 Body mass index [BMI] 29.0-29.9, adult
CPT/HCPCS: 31720; 36415; 36600; 70450; 70551; 71045; 71046; 76775; 80048; 80053; 80069; 80184; 80307; 80320; 81001; 82140; 82306; 82570; 82805; 82962; 83735; 83880; 83970; 84100; 84156; 84300; 84443; 84478; 84484; 85025; 87081; 87493; 92610; 93306; 94640; 94667; 94668; 95819; 96361; 96365; 96367; 96372; 96375; 96376; 97110; 97116; 97530; C9113; G0378; J1815; J2405; J3490; J7060